=== PATIENT | female | born 1980 | race Caucasian/White ===

== ENCOUNTER 2018-10-04 06:01 | Emergency (ER) | payer SELFPAY ==
[~2018-10-04] VITALS: Ht 157.5 cm; Wt 91.3 kg
[2018-10-04 06:11] VITALS: Ht 157.5 cm; Wt 91.3 kg
[2018-10-04 09:44] VITALS: BP 107/78
== END 2018-10-04 09:45 | disposition home or self-care (01) ==
LOC: ED 06:01
DX: K59.00 Constipation, unspecified (principal); R11.0 Nausea